=== PATIENT | male | born 1965 | race Caucasian/White ===

== ENCOUNTER 2016-09-01 09:45 | Emergency (ER) | payer OTHER ==
[2016-09-01 12:37] LABS: BASO % 0.4 % (0.0-1.0); EOS # 0.1 K/mm3 (0.0-0.50); EOS % 1.8 % (0.0-3.0); LARGE UNSTAINED CELL # 0.1 K/mm3 (0.0-0.4); LARGE UNSTAINED CELL % 0.9 % (0.0-4.0); MEAN CORPUSCULAR HEMOGLOBIN 30.1 pg (27.0-33.0); MEAN CORPUSCULAR HGB CONC 35.2 g/dl (32.0-36.5); MEAN CORPUSCULAR VOLUME 85.6 fl (80.0-96.0); MONO # 0.3 K/mm3 (0.0-0.8); MONO % 4.7 % (0.0-5.0); NEUTROPHILS % 77.1 % (36.0-66.0); PLATELET COUNT, AUTOMATED 193 k/mm3 (150-450); RED CELL DISTRIBUTION WIDTH 12.5 % (11.5-14.5); WHITE BLOOD COUNT 6.4 K/mm3 (4.0-10.0)
[2016-09-01 12:49] LABS: ALBUMIN 4.3 GM/DL (3.2-5.2); ALBUMIN/GLOBULIN RATIO 1.34 (1.00-1.93); ALKALINE PHOSPHATASE 87 U/L (45-117); ALT/SGPT 32 U/L (12-78); ANION GAP 6 MEQ/L (8-16); AST/SGOT 16 U/L (15-37); BILIRUBIN,TOTAL 0.5 MG/DL (0.2-1.0); BLOOD UREA NITROGEN 10 MG/DL (7-18); CARBON DIOXIDE LEVEL 30 MEQ/L (21-32); CHLORIDE LEVEL 106 MEQ/L (98-107); CREATININE FOR GFR 0.99 MG/DL (0.70-1.30); GLOMERULAR FILTRATION RATE > 60.0 (>60); GLUCOSE, FASTING 98 MG/DL (70-105); POTASSIUM SERUM 4.2 MEQ/L (3.5-5.1); SODIUM LEVEL 142 MEQ/L (136-145); TOTAL PROTEIN 7.5 GM/DL (6.4-8.2)
[2016-09-01 12:58] LABS: HEPATITIS B SURFACE ANTIBODY NEGATIVE (POSITIVE)
--- NOTE | 2016-09-01 13:40 | EDDOCDS ---
Physician Documentation [facility] Name: Kenny Crocker Age: 51 yrs Sex: Male : 1965 Arrival Date: 09/01/2016 Time: 09:45 Bed PR Private MD: NO PRIMARY PHYSICIAN, . Disposition: 09/01/16 13:28 Discharged to Home/Self Care. Impression: Contact with and (suspected) exposure to potentially hazardous body fluids - URINE, IN EYES/MOUTH. - Condition is Stable. - Discharge Instructions: Body Fluid Exposure Information. - Medication Reconciliation, Local Pharmacy Hours form. - Follow up: Emergency Department; When: As needed; Reason: Worsening of conditions. Follow up: Employee Health Office, .; When: Call to arrange an appointment; Reason: Wound/Symptom Recheck, Recheck today's complaints, Continuance of care, To establish care. - Problem is new. - Symptoms are unchanged. - Notes: PLEASE FOLLOW UP WITH EMPLOYEE HEALTH. THEY CAN OFFER YOU AND PROVIDE YOU WITH THE HEPATITIS B VACCINE, YOUR BLOOD WORK SHOWS YOU HAVE NOT HAD THIS IN THE PAST. RETURN TO THE ER WITH ANY WORSENING SYMPTOMS. Historical: - Allergies: no known allergies; - Home Meds: 1. none - PSHx: none; - Social history: Smoking status: Patient states was never smoker of tobacco. No barriers to communication noted, The patient speaks fluent Setswana, Speaks appropriately for age. - Family history: Not pertinent. - : The pt / caregiver states he / she is not on anticoagulants. Home medication list is obtained from the patient. - Exposure Risk Screening:: None identified. - Immunization history:: hep series unsure of . Vital Signs: 09/01 09:47 BP 129 / 73; Pulse 90; Resp 18; Temp 97.8(O); Pulse Ox 97% on R/A; Weight 64.41 kg / ct3 142 lbs (R); Height 5 ft. 6 in. (167.64 cm) (R); Pain 0/10; 13:35 BP 124 / 67; Pulse 66; Resp 18; Temp 97.3(TE); Pulse Ox 99% on R/A; Pain 0/10; ct3 09:47 Body Mass Index 22.92 (64.41 kg, 167.64 cm) ct3 MDM: 12:06 Consult Employee Health (M-F, 7:30a-4p) or Nursing Dinkey Motor Operator for source patient dt4 testing ordered. 12:06 Place PEP packet on chart ordered. dt4 12:07 CBC with Diff Ordered. EDMS 12:07 Complete Comphrensive Metabolic Ordered. EDMS 12:07 HIV EXPOSED(ONLY WITH PEP SET) Ordered. EDMS 12:07 Hepatitis B Surface Antibody Ordered. EDMS 12:07 Hepatitis B Surface Antigen Ordered. EDMS 12:07 Hepatitis C Antibody Ordered. EDMS 12:35 Financial registration complete. mm15 12:44 Consult [employer] (-, 7:30a-4p) or Nursing Dinkey Motor Operator for source patient ttb testing complete. 12:46 [facility] Payment Agreement was scanned into [employer] and attached to record. mm15 13:02 CBC with Diff Reviewed. dt4 13:02 Complete Comphrensive Metabolic Reviewed. dt4 13:02 Hepatitis B Surface Antibody Reviewed. dt4 Signatures: Dispatcher [employer] EDKY Trinity Turner RN RN hs1 Yoanna Beltre RN RN ttb Yanelis Mendoza mm15 Delicia Greene PA-C PA-C dt4 The chart was reviewed and I authenticate all verbal orders and agree with the evaluation and treatment provided.Attachments: 12:46 [facility] Payment Agreement mm15 MTDD
--- NOTE | 2016-09-01 13:40 | EDDOCDS ---
Nurse's Notes [facility] Name: Kenny Crocker Age: 51 yrs Sex: Male : 1965 Arrival Date: 09/01/2016 Time: 09:45 Bed PR1 / Private MD: NO PRIMARY PHYSICIAN, . Diagnosis: Contact with and (suspected) exposure to potentially hazardous body fluids-URINE, IN EYES/MOUTH Presentation: 09/01 09:59 Presenting complaint: Patient states: trying to unclog urinal and snake was stuck and hs1 splashed in face and mouth here for exposure. Patient states cleaned face with soap and water. Infectious control from [facility] told patient to report and come in for evaluation. Adult Sepsis Screening: The patient does not have new or worsening altered mentation. Patient's respiratory rate is less than 22. Systolic blood pressure is greater than 100. Patient has a qSOFA score of 0- Negative Sepsis Screen. Suicide/Homicide risk assessment- the patient denies having any suicidal and/or homicidal ideations and does not present with any other emotional, behavioral or mental health complaints. Status: Patient is not a commercial hvac service technician or dependent. Transition of care: patient was not received from another setting of care. 09:59 Acuity: SHARON Level 4 hs1 09:59 Method Of Arrival: Walkin/Carried/Asstd hs1 Triage Assessment: 10:01 General: Appears in no apparent distress, Behavior is appropriate for age, cooperative. hs1 Pain: Denies pain. Pt Declines HIV testing. Cardiovascular: No deficits noted. Respiratory: No deficits noted. Derm: Skin is pink, warm & dry. normal. Historical: - Allergies: no known allergies; - Home Meds: 1. none - PSHx: none; - Social history: Smoking status: Patient states was never smoker of tobacco. No barriers to communication noted, The patient speaks fluent Pashto, Speaks appropriately for age. - Family history: Not pertinent. - : The pt / caregiver states he / she is not on anticoagulants. Home medication list is obtained from the patient. - Exposure Risk Screening:: None identified. - Immunization history:: hep series unsure of . Screenin:38 Screening information is obtained from the patient. Fall risk: No risks identified. ttb Assistance ADL's: requires no assistance with activities of daily living. Abuse/DV Screen: The patient / caregiver reports he/she is: not in a situation that causes fear, pain or injury. Nutritional screening: No deficits noted. Advance Directives: Currently, there is. home support is adequate. Assessment: 12:45 General: employee health contacted, TRAVIS Ray states provider discretion for ttb treatment. Pt to go to office when completed in the ER.. 13:38 Reassessment: Patient appears in no apparent distress at this time. pt instructed to go ttb to employee health. . Neurological: Level of Consciousness is awake, alert. Respiratory: No deficits noted. Vital Signs: 09:47 BP 129 / 73; Pulse 90; Resp 18; Temp 97.8(O); Pulse Ox 97% on R/A; Weight 64.41 kg (R); ct3 Height 5 ft. 6 in. (167.64 cm) (R); Pain 0/10; 13:35 BP 124 / 67; Pulse 66; Resp 18; Temp 97.3(TE); Pulse Ox 99% on R/A; Pain 0/10; ct3 09:47 Body Mass Index 22.92 (64.41 kg, 167.64 cm) ct3 Vitals: 09:47 Log In Time: September 01, 2016 at 09:44. ct3 ED Course: 09:47 Patient visited by Vivian Wakefield PCA. ct3 09:47 NO PRIMARY PHYSICIAN, . is Private Physician. ct3 09:47 Patient moved to Waiting ct3 09:48 Patient moved to Pre RCE ct3 10:00 Triage Initiated hs1 10:56 Patient moved to Triage 3 ct3 11:36 Delicia Greene PA-C is PHCP. dt4 11:36 Albert Braden MD is Attending Physician. dt4 11:36 Patient visited by Delicia Greene PA-C. dt4 12:18 Patient moved to PR ct3 12:22 CBC with Diff Sent. ct3 12:22 Complete Comphrensive Metabolic Sent. ct3 12:22 Hepatitis B Surface Antibody Sent. ct3 12:22 HIV EXPOSED(ONLY WITH PEP SET) Sent. ct3 12:22 Hepatitis B Surface Antigen Sent. ct3 12:22 Hepatitis C Antibody Sent. ct3 12:44 Patient visited by Vivian Wakefield PCA. ct3 12:45 Patient visited by Yoanna Beltre RN. ttb 12:46 [facility] Payment Agreement was scanned into [employer] and attached to record. mm15 13:17 Patient visited by Vivian Wakefield PCA. ct3 13:27 Employee Health Office, . is Referral Physician. dt4 13:38 The patient / caregiver is instructed regarding the plan of care and ED course. Patient ttb has correct armband on for positive identification. 13:38 No IV's were initiated during this patient's visit. No procedures done that require ttb assistance. Labs drawn. (by ED staff). Order Results: Lab Order: CBC with Diff; SPEC'M 09/01/16 12:18 Test: WHITE BLOOD COUNT; Value: 6.4; Range: 4.0-10.0; Units: K/mm3; Status: F Test: RED BLOOD COUNT; Value: 5.19; Range: 4.30-6.10; Units: M/mm3; Status: F Test: HEMOGLOBIN; Value: 15.7; Range: 14.0-18.0; Units: g/dl; Status: F Test: HEMATOCRIT; Value: 44.4; Range: 42.0-52.0; Units: %; Status: F Test: MEAN CORPUSCULAR VOLUME; Value: 85.6; Range: 80.0-96.0; Units: fl; Status: F Test: MEAN CORPUSCULAR HEMOGLOBIN; Value: 30.1; Range: 27.0-33.0; Units: pg; Status: F Test: MEAN CORPUSCULAR HGB CONC; Value: 35.2; Range: 32.0-36.5; Units: g/dl; Status: F Test: RED CELL DISTRIBUTION WIDTH; Value: 12.5; Range: 11.5-14.5; Units: %; Status: F Test: PLATELET COUNT, AUTOMATED; Value: 193; Range: 150-450; Units: k/mm3; Status: F Test: NEUTROPHILS %; Value: 77.1; Range: 36.0-66.0; Abnormal: Above high normal; Units: %; Status: F Test: LYMPH %; Value: 15.0; Range: 24.0-44.0; Abnormal: Below low normal; Units: %; Status: F Test: MONO %; Value: 4.7; Range: 0.0-5.0; Units: %; Status: F Test: EOS %; Value: 1.8; Range: 0.0-3.0; Units: %; Status: F Test: BASO %; Value: 0.4; Range: 0.0-1.0; Units: %; Status: F Test: LARGE UNSTAINED CELL %; Value: 0.9; Range: 0.0-4.0; Units: %; Status: F Test: NEUTROPHILS #; Value: 5.0; Range: 1.8-7.7; Units: K/mm3; Status: F Test: LYMPH #; Value: 1.0; Range: 1.5-4.5; Abnormal: Below low normal; Units: K/mm3; Status: F Test: MONO #; Value: 0.3; Range: 0.0-0.8; Units: K/mm3; Status: F Test: EOS #; Value: 0.1; Range: 0.0-0.50; Units: K/mm3; Status: F Test: BASO #; Value: 0.0; Range: 0.0-0.2; Units: K/mm3; Status: F Test: LARGE UNSTAINED CELL #; Value: 0.1; Range: 0.0-0.4; Units: K/mm3; Status: F Lab Order: Complete Comphrensive Metabolic; SPEC'M 09/01/16 12:18 Test: GLUCOSE, FASTING; Value: 98; Range: 70-105; Units: MG/DL; Status: F Test: BLOOD UREA NITROGEN; Value: 10; Range: 7-18; Units: MG/DL; Status: F Test: CREATININE FOR GFR; Value: 0.99; Range: 0.70-1.30; Units: MG/DL; Status: F Test: GLOMERULAR FILTRATION RATE; Value: > 60.0; Range: >60; Status: F Test: SODIUM LEVEL; Value: 142; Range: 136-145; Units: MEQ/L; Status: F Test: POTASSIUM SERUM; Value: 4.2; Range: 3.5-5.1; Units: MEQ/L; Status: F Test: CHLORIDE LEVEL; Value: 106; Range: 98-107; Units: MEQ/L; Status: F Test: CARBON DIOXIDE LEVEL; Value: 30; Range: 21-32; Units: MEQ/L; Status: F Test: ANION GAP; Value: 6; Range: 8-16; Abnormal: Below low normal; Units: MEQ/L; Status: F Test: CALCIUM LEVEL; Value: 9.0; Range: 8.5-10.1; Units: MG/DL; Status: F Test: AST/SGOT; Value: 16; Range: 15-37; Units: U/L; Status: F Test: ALT/SGPT; Value: 32; Range: 12-78; Units: U/L; Status: F Test: ALKALINE PHOSPHATASE; Value: 87; Range: 45-117; Units: U/L; Status: F Test: BILIRUBIN,TOTAL; Value: 0.5; Range: 0.2-1.0; Units: MG/DL; Status: F Test: TOTAL PROTEIN; Value: 7.5; Range: 6.4-8.2; Units: GM/DL; Status: F Test: ALBUMIN; Value: 4.3; Range: 3.2-5.2; Units: GM/DL; Status: F Test: ALBUMIN/GLOBULIN RATIO; Value: 1.34; Range: 1.00-1.93; Status: F Test Note: ; Units are mL/min/1.73 m2 Chronic Kidney Disease Staging per NKF: Stage I & II GFR >=60 Normal to Mildly Decreased Stage III GFR 30-59 Moderately Decreased Stage IV GFR 15-29 Severely Decreased Stage V GFR <15 Very Little GFR Left ESRD GFR <15 on FIELD GEOLOGIST Lab Order: HIV EXPOSED(ONLY WITH PEP SET); [facility]09/01/16 12:18 Test: HIVEXPOSED0; Range: NEGATIVE; Status: I Test: HIV EXPOSED PT 1; Range: NEGATIVE; Status: I Lab Order: Hepatitis B Surface Antibody; SPEC09/01/16 12:18 Test: HEPATITIS B SURFACE ANTIBODY; Value: NEGATIVE; Range: POSITIVE; Status: F Lab Order: Hepatitis B Surface Antigen; SPEC 09/01/16 12:18 Test: HEPATITIS B SURFACE ANTIGEN; Value: NEGATIVE; Range: NEGATIVE; Status: F Lab Order: Hepatitis C Antibody; [facility]09/01/16 12:18 Test: HEPATITIS C VIRUS MYNOR INDEX; Value: 0.0; Range: <0.8; Units: INDEX; Status: F Test Note: ; Negative Not infected with HCV, unless recent infection is suspected or other evidence exists to indicate HCV infection. Outcome: 13:28 Discharge ordered by Provider. dt4 13:38 Discharge Assessment: Patient awake, alert and oriented x 3. No cognitive and/or ttb functional deficits noted. Patient verbalized understanding of disposition instructions. Patient awake and alert. patient administered narcotics - no. The following High Risk Discharge criteria are identified: None. Discharged to home ambulatory. Condition: good Condition: stable Condition: improved. Discharge instructions given to patient, Instructed on discharge instructions, follow up and referral plans. medication usage, Demonstrated understanding of instructions, Pt was receptive of discharge instructions/ teaching. No special radiology studies were completed. Property :Personal belongings accompany Pt. 13:40 Patient left the ED. ttb Signatures: Trinity Turner RN RN hs1 Vivian Wakefield, FLOUR MIXER HELPER FLOUR MIXER HELPER ct3 Yoanna Beltre RN RN ttb Yanelis Mendoza mm15 Delicia Greene, PA-C PA-C dt4 MTDD
[2016-09-01 14:06] LABS: CONTROL LINE INT CTR LINE PRESENT
--- NOTE | 2016-09-03 14:41 | EDDOCDS ---
Nurse's Notes [facility] Name: Kenny Crocker Age: 51 yrs Sex: Male : 1965 Arrival Date: 09/01/2016 Time: 09:45 Bed PR1 / Private MD: NO PRIMARY PHYSICIAN, . Diagnosis: Contact with and (suspected) exposure to potentially hazardous body fluids-URINE, IN EYES/MOUTH Presentation: 09/01 09:59 Presenting complaint: Patient states: trying to unclog urinal and snake was stuck and hs1 splashed in face and mouth here for exposure. Patient states cleaned face with soap and water. Infectious control from [facility] told patient to report and come in for evaluation. Adult Sepsis Screening: The patient does not have new or worsening altered mentation. Patient's respiratory rate is less than 22. Systolic blood pressure is greater than 100. Patient has a qSOFA score of 0- Negative Sepsis Screen. Suicide/Homicide risk assessment- the patient denies having any suicidal and/or homicidal ideations and does not present with any other emotional, behavioral or mental health complaints. Status: Patient is not a director of food and beverage services or dependent. Transition of care: patient was not received from another setting of care. 09:59 Acuity: SHARON Level 4 hs1 09:59 Method Of Arrival: Walkin/Carried/Asstd hs1 Triage Assessment: 10:01 General: Appears in no apparent distress, Behavior is appropriate for age, cooperative. hs1 Pain: Denies pain. Pt Declines HIV testing. Cardiovascular: No deficits noted. Respiratory: No deficits noted. Derm: Skin is pink, warm & dry. normal. Historical: - Allergies: no known allergies; - Home Meds: 1. none - PSHx: none; - Social history: Smoking status: Patient states was never smoker of tobacco. No barriers to communication noted, The patient speaks fluent Kinyarwanda, Speaks appropriately for age. - Family history: Not pertinent. - : The pt / caregiver states he / she is not on anticoagulants. Home medication list is obtained from the patient. - Exposure Risk Screening:: None identified. - Immunization history:: hep series unsure of . Screenin:38 Screening information is obtained from the patient. Fall risk: No risks identified. ttb Assistance ADL's: requires no assistance with activities of daily living. Abuse/DV Screen: The patient / caregiver reports he/she is: not in a situation that causes fear, pain or injury. Nutritional screening: No deficits noted. Advance Directives: Currently, there is. home support is adequate. Assessment: 12:45 General: employee health contacted, TRAVIS Ray states provider discretion for ttb treatment. Pt to go to office when completed in the ER.. 13:38 Reassessment: Patient appears in no apparent distress at this time. pt instructed to go ttb to employee health. . Neurological: Level of Consciousness is awake, alert. Respiratory: No deficits noted. Vital Signs: 09:47 BP 129 / 73; Pulse 90; Resp 18; Temp 97.8(O); Pulse Ox 97% on R/A; Weight 64.41 kg (R); ct3 Height 5 ft. 6 in. (167.64 cm) (R); Pain 0/10; 13:35 BP 124 / 67; Pulse 66; Resp 18; Temp 97.3(TE); Pulse Ox 99% on R/A; Pain 0/10; ct3 09:47 Body Mass Index 22.92 (64.41 kg, 167.64 cm) ct3 Vitals: 09:47 Log In Time: September 01, 2016 at 09:44. ct3 ED Course: 09:47 Patient visited by Vivian Wakefield PCA. ct3 09:47 NO PRIMARY PHYSICIAN, . is Private Physician. ct3 09:47 Patient moved to Waiting ct3 09:48 Patient moved to Pre RCE ct3 10:00 Triage Initiated hs1 10:56 Patient moved to Triage 3 ct3 11:36 Delicia Greene PA-C is PHCP. dt4 11:36 Albert Braden MD is Attending Physician. dt4 11:36 Patient visited by Delicia Greene PA-C. dt4 12:18 Patient moved to PR ct3 12:22 CBC with Diff Sent. ct3 12:22 Complete Comphrensive Metabolic Sent. ct3 12:22 Hepatitis B Surface Antibody Sent. ct3 12:22 HIV EXPOSED(ONLY WITH PEP SET) Sent. ct3 12:22 Hepatitis B Surface Antigen Sent. ct3 12:22 Hepatitis C Antibody Sent. ct3 12:44 Patient visited by Vivian Wakefield PCA. ct3 12:45 Patient visited by Yoanna Beltre RN. ttb 12:46 [facility] Payment Agreement was scanned into [employer] and attached to record. mm15 13:17 Patient visited by Vivian Wakefield PCA. ct3 13:27 Employee Health Office, . is Referral Physician. dt4 13:38 The patient / caregiver is instructed regarding the plan of care and ED course. Patient ttb has correct armband on for positive identification. 13:38 No IV's were initiated during this patient's visit. No procedures done that require ttb assistance. Labs drawn. (by ED staff). 09/02 11:00 T-Sheet-- Draft Copy was scanned into [employer] and attached to record. gb 11:00 Other: PEP was scanned into [employer] and attached to record. gb Order Results: Lab Order: CBC with Diff; SPEC'M 09/01/16 12:18 Test: WHITE BLOOD COUNT; Value: 6.4; Range: 4.0-10.0; Units: K/mm3; Status: F Test: RED BLOOD COUNT; Value: 5.19; Range: 4.30-6.10; Units: M/mm3; Status: F Test: HEMOGLOBIN; Value: 15.7; Range: 14.0-18.0; Units: g/dl; Status: F Test: HEMATOCRIT; Value: 44.4; Range: 42.0-52.0; Units: %; Status: F Test: MEAN CORPUSCULAR VOLUME; Value: 85.6; Range: 80.0-96.0; Units: fl; Status: F Test: MEAN CORPUSCULAR HEMOGLOBIN; Value: 30.1; Range: 27.0-33.0; Units: pg; Status: F Test: MEAN CORPUSCULAR HGB CONC; Value: 35.2; Range: 32.0-36.5; Units: g/dl; Status: F Test: RED CELL DISTRIBUTION WIDTH; Value: 12.5; Range: 11.5-14.5; Units: %; Status: F Test: PLATELET COUNT, AUTOMATED; Value: 193; Range: 150-450; Units: k/mm3; Status: F Test: NEUTROPHILS %; Value: 77.1; Range: 36.0-66.0; Abnormal: Above high normal; Units: %; Status: F Test: LYMPH %; Value: 15.0; Range: 24.0-44.0; Abnormal: Below low normal; Units: %; Status: F Test: MONO %; Value: 4.7; Range: 0.0-5.0; Units: %; Status: F Test: EOS %; Value: 1.8; Range: 0.0-3.0; Units: %; Status: F Test: BASO %; Value: 0.4; Range: 0.0-1.0; Units: %; Status: F Test: LARGE UNSTAINED CELL %; Value: 0.9; Range: 0.0-4.0; Units: %; Status: F Test: NEUTROPHILS #; Value: 5.0; Range: 1.8-7.7; Units: K/mm3; Status: F Test: LYMPH #; Value: 1.0; Range: 1.5-4.5; Abnormal: Below low normal; Units: K/mm3; Status: F Test: MONO #; Value: 0.3; Range: 0.0-0.8; Units: K/mm3; Status: F Test: EOS #; Value: 0.1; Range: 0.0-0.50; Units: K/mm3; Status: F Test: BASO #; Value: 0.0; Range: 0.0-0.2; Units: K/mm3; Status: F Test: LARGE UNSTAINED CELL #; Value: 0.1; Range: 0.0-0.4; Units: K/mm3; Status: F Lab Order: Complete Comphrensive Metabolic; SPEC'M 09/01/16 12:18 Test: GLUCOSE, FASTING; Value: 98; Range: 70-105; Units: MG/DL; Status: F Test: BLOOD UREA NITROGEN; Value: 10; Range: 7-18; Units: MG/DL; Status: F Test: CREATININE FOR GFR; Value: 0.99; Range: 0.70-1.30; Units: MG/DL; Status: F Test: GLOMERULAR FILTRATION RATE; Value: > 60.0; Range: >60; Status: F Test: SODIUM LEVEL; Value: 142; Range: 136-145; Units: MEQ/L; Status: F Test: POTASSIUM SERUM; Value: 4.2; Range: 3.5-5.1; Units: MEQ/L; Status: F Test: CHLORIDE LEVEL; Value: 106; Range: 98-107; Units: MEQ/L; Status: F Test: CARBON DIOXIDE LEVEL; Value: 30; Range: 21-32; Units: MEQ/L; Status: F Test: ANION GAP; Value: 6; Range: 8-16; Abnormal: Below low normal; Units: MEQ/L; Status: F Test: CALCIUM LEVEL; Value: 9.0; Range: 8.5-10.1; Units: MG/DL; Status: F Test: AST/SGOT; Value: 16; Range: 15-37; Units: U/L; Status: F Test: ALT/SGPT; Value: 32; Range: 12-78; Units: U/L; Status: F Test: ALKALINE PHOSPHATASE; Value: 87; Range: 45-117; Units: U/L; Status: F Test: BILIRUBIN,TOTAL; Value: 0.5; Range: 0.2-1.0; Units: MG/DL; Status: F Test: TOTAL PROTEIN; Value: 7.5; Range: 6.4-8.2; Units: GM/DL; Status: F Test: ALBUMIN; Value: 4.3; Range: 3.2-5.2; Units: GM/DL; Status: F Test: ALBUMIN/GLOBULIN RATIO; Value: 1.34; Range: 1.00-1.93; Status: F Test Note: ; Units are mL/min/1.73 m2 Chronic Kidney Disease Staging per NKF: Stage I & II GFR >=60 Normal to Mildly Decreased Stage III GFR 30-59 Moderately Decreased Stage IV GFR 15-29 Severely Decreased Stage V GFR <15 Very Little GFR Left ESRD GFR <15 on TEACHER ADULT EDUCATION Lab Order: HIV EXPOSED(ONLY WITH PEP SET); SPEC'M 09/01/16 12:18 Test: HIVEXPOSED0; Value: NEGATIVE; Range: NEGATIVE; Status: F Test: HIV EXPOSED PT 1; Value: NEGATIVE; Range: NEGATIVE; Status: F Test Note: ; This test was performed utilizing a immunochromatographic sandwich principle technique. Sensitivity of the assay is 100%. Specificity of the assay is 99.7%. Lab Order: Hepatitis B Surface Antibody; SPEC'M 09/01/16 12:18 Test: HEPATITIS B SURFACE ANTIBODY; Value: NEGATIVE; Range: POSITIVE; Status: F Lab Order: Hepatitis B Surface Antigen; SPEC'M 09/01/16 12:18 Test: HEPATITIS B SURFACE ANTIGEN; Value: NEGATIVE; Range: NEGATIVE; Status: F Lab Order: Hepatitis C Antibody; SPEC'M 09/01/16 12:18 Test: HEPATITIS C VIRUS MYNOR INDEX; Value: 0.0; Range: <0.8; Units: INDEX; Status: F Test Note: ; Negative Not infected with HCV, unless recent infection is suspected or other evidence exists to indicate HCV infection. Outcome: 09/01 13:28 Discharge ordered by Provider. dt4 13:38 Discharge Assessment: Patient awake, alert and oriented x 3. No cognitive and/or ttb functional deficits noted. Patient verbalized understanding of disposition instructions. Patient awake and alert. patient administered narcotics - no. The following High Risk Discharge criteria are identified: None. Discharged to home ambulatory. Condition: good Condition: stable Condition: improved. Discharge instructions given to patient, Instructed on discharge instructions, follow up and referral plans. medication usage, Demonstrated understanding of instructions, Pt was receptive of discharge instructions/ teaching. No special radiology studies were completed. Property :Personal belongings accompany Pt. 13:40 Patient left the ED. ttb Signatures: Sandhya Solorzano, Reg Reg Trinity Cunningham, RN RN hs1 Vivian Wakefield, SENIOR LEAD PROJECT MANAGER SENIOR LEAD PROJECT MANAGER ct3 Yoanna Beltre RN RN ttb Yanelis Mendoza mm15 Delicia Greene PA-C [place] dt4 Chart Complete MTDD
--- NOTE | 2016-09-03 14:41 | EDDOCDS ---
Physician Documentation [facility] Name: Kenny Crocker Age: 51 yrs Sex: Male : 1965 Arrival Date: 09/01/2016 Time: 09:45 Bed PR Private MD: NO PRIMARY PHYSICIAN, . Disposition: 09/01/16 13:28 Discharged to Home/Self Care. Impression: Contact with and (suspected) exposure to potentially hazardous body fluids - URINE, IN EYES/MOUTH. - Condition is Stable. - Discharge Instructions: Body Fluid Exposure Information. - Medication Reconciliation, Local Pharmacy Hours form. - Follow up: Emergency Department; When: As needed; Reason: Worsening of conditions. Follow up: Employee Health Office, .; When: Call to arrange an appointment; Reason: Wound/Symptom Recheck, Recheck today's complaints, Continuance of care, To establish care. - Problem is new. - Symptoms are unchanged. - Notes: PLEASE FOLLOW UP WITH EMPLOYEE HEALTH. THEY CAN OFFER YOU AND PROVIDE YOU WITH THE HEPATITIS B VACCINE, YOUR BLOOD WORK SHOWS YOU HAVE NOT HAD THIS IN THE PAST. RETURN TO THE ER WITH ANY WORSENING SYMPTOMS. Historical: - Allergies: no known allergies; - Home Meds: 1. none - PSHx: none; - Social history: Smoking status: Patient states was never smoker of tobacco. No barriers to communication noted, The patient speaks fluent Slovenian, Speaks appropriately for age. - Family history: Not pertinent. - : The pt / caregiver states he / she is not on anticoagulants. Home medication list is obtained from the patient. - Exposure Risk Screening:: None identified. - Immunization history:: hep series unsure of . Vital Signs: 09/01 09:47 BP 129 / 73; Pulse 90; Resp 18; Temp 97.8(O); Pulse Ox 97% on R/A; Weight 64.41 kg / ct3 142 lbs (R); Height 5 ft. 6 in. (167.64 cm) (R); Pain 0/10; 13:35 BP 124 / 67; Pulse 66; Resp 18; Temp 97.3(TE); Pulse Ox 99% on R/A; Pain 0/10; ct3 09:47 Body Mass Index 22.92 (64.41 kg, 167.64 cm) ct3 MDM: 12:06 Consult Employee Health (M-F, 7:30a-4p) or Nursing Blood Bank Custodian for source patient dt4 testing ordered. 12:06 Place PEP packet on chart ordered. dt4 12:07 CBC with Diff Ordered. EDMS 12:07 Complete Comphrensive Metabolic Ordered. EDMS 12:07 HIV EXPOSED(ONLY WITH PEP SET) Ordered. EDMS 12:07 Hepatitis B Surface Antibody Ordered. EDMS 12:07 Hepatitis B Surface Antigen Ordered. EDMS 12:07 Hepatitis C Antibody Ordered. EDMS 12:35 Financial registration complete. mm15 12:44 Consult [employer] (-F, 7:30a-4p) or Nursing Blood Bank Custodian for source patient ttb testing complete. 12:46 [facility] [place] [facility] Payment Agreement was scanned into [employer] and attached to record. mm15 13:02 CBC with Diff Reviewed. dt4 13:02 Complete Comphrensive Metabolic Reviewed. dt4 13:02 Hepatitis B Surface Antibody Reviewed. dt4 09/02 11:00 T-Sheet-- Draft Copy was scanned into [employer] and attached to record. gb 11:00 Other: PEP was scanned into [employer] and attached to record. gb Signatures: Dispatcher [employer] EDMS Sandhya Solorzano, Reg Reg gb Trinity Turner, TRAVIS RN hs1 Yoanna Beltre RN RN ttb Yanelis Mendoza mm15 Delciia Greene PA-C PA-C dt4 The chart was reviewed and I authenticate all verbal orders and agree with the evaluation and treatment provided.Attachments: 09/01 12:46 [facility] Payment Agreement mm15 09/02 11:00 T-Sheet-- Draft Copy gb Chart Complete MTDD
--- NOTE | 2016-09-03 14:41 | EDDOCDS ---
Physician Documentation [facility] Name: Kenny Crocker Age: 51 yrs Sex: Male : 1965 Arrival Date: 09/01/2016 Time: 09:45 Bed PR Private MD: NO PRIMARY PHYSICIAN, . Disposition: 09/01/16 13:28 Discharged to Home/Self Care. Impression: Contact with and (suspected) exposure to potentially hazardous body fluids - URINE, IN EYES/MOUTH. - Condition is Stable. - Discharge Instructions: Body Fluid Exposure Information. - Medication Reconciliation, Local Pharmacy Hours form. - Follow up: Emergency Department; When: As needed; Reason: Worsening of conditions. Follow up: Employee Health Office, .; When: Call to arrange an appointment; Reason: Wound/Symptom Recheck, Recheck today's complaints, Continuance of care, To establish care. - Problem is new. - Symptoms are unchanged. - Notes: PLEASE FOLLOW UP WITH EMPLOYEE HEALTH. THEY CAN OFFER YOU AND PROVIDE YOU WITH THE HEPATITIS B VACCINE, YOUR BLOOD WORK SHOWS YOU HAVE NOT HAD THIS IN THE PAST. RETURN TO THE ER WITH ANY WORSENING SYMPTOMS. Historical: - Allergies: no known allergies; - Home Meds: 1. none - PSHx: none; - Social history: Smoking status: Patient states was never smoker of tobacco. No barriers to communication noted, The patient speaks fluent Chinese, Speaks appropriately for age. - Family history: Not pertinent. - : The pt / caregiver states he / she is not on anticoagulants. Home medication list is obtained from the patient. - Exposure Risk Screening:: None identified. - Immunization history:: hep series unsure of . Vital Signs: 09/01 09:47 BP 129 / 73; Pulse 90; Resp 18; Temp 97.8(O); Pulse Ox 97% on R/A; Weight 64.41 kg / ct3 142 lbs (R); Height 5 ft. 6 in. (167.64 cm) (R); Pain 0/10; 13:35 BP 124 / 67; Pulse 66; Resp 18; Temp 97.3(TE); Pulse Ox 99% on R/A; Pain 0/10; ct3 09:47 Body Mass Index 22.92 (64.41 kg, 167.64 cm) ct3 MDM: 12:06 Consult Employee Health (M-F, 7:30a-4p) or Nursing Bulldozer Mechanic for source patient dt4 testing ordered. 12:06 Place PEP packet on chart ordered. dt4 12:07 CBC with Diff Ordered. EDMS 12:07 Complete Comphrensive Metabolic Ordered. EDMS 12:07 HIV EXPOSED(ONLY WITH PEP SET) Ordered. EDMS 12:07 Hepatitis B Surface Antibody Ordered. EDMS 12:07 Hepatitis B Surface Antigen Ordered. EDMS 12:07 Hepatitis C Antibody Ordered. EDMS 12:35 Financial registration complete. mm15 12:44 Consult [employer] (-F, 7:30a-4p) or Nursing Bulldozer Mechanic for source patient ttb testing complete. 12:46 [facility] Payment Agreement was scanned into [employer] and attached to record. mm15 13:02 CBC with Diff Reviewed. dt4 13:02 Complete Comphrensive Metabolic Reviewed. dt4 13:02 Hepatitis B Surface Antibody Reviewed. dt4 09/02 11:00 T-Sheet-- Draft Copy was scanned into [employer] and attached to record. gb 11:00 Other: PEP was scanned into [employer] and attached to record. gb Signatures: Dispatcher [employer] EDMS Sandhya Solorzano, Reg Reg gb Trinity Turner, TRAVIS RN hs1 Yoanna Beltre RN RN ttb Yanelis Mendoza mm15 Delicia Greene PA-C PA-C dt4 The chart was reviewed and I authenticate all verbal orders and agree with the evaluation and treatment provided.Attachments: 09/01 12:46 [facility] Payment Agreement mm15 09/02 11:00 T-Sheet-- Draft Copy gb Chart Complete MTDD
== END 2016-09-01 13:40 | disposition home or self-care (01) ==
LOC: M ED 09:45
DX: Z77.21 Contact with and (suspected) exposure to potentially hazardous body fluids (principal)

== ENCOUNTER 2020-01-11 09:53 | Emergency (ER) | payer BC, OTHER ==
[~2020-01-11] VITALS: Ht 167.6 cm; Wt 83.2 kg
[2020-01-11 10:56] LABS: BASO % 0.3 % (0.0-1.0); HEMATOCRIT 46.1 % (42.0-52.0); HEMOGLOBIN 16.4 g/dl (13.5-17.5); LYMPH # 0.5 10^3/uL (1.5-5.0); LYMPH % 3.1 % (24.0-44.0); MEAN CORPUSCULAR HEMOGLOBIN 30.4 pg (27.0-33.0); MEAN CORPUSCULAR HGB CONC 35.6 g/dl (32.0-36.5); MEAN CORPUSCULAR VOLUME 85.4 fl (80.0-96.0); MONO # 0.7 10^3/uL (0.0-0.8); MONO % 4.3 % (0.0-5.0); NEUTROPHILS # 14.7 10^3/uL (1.5-8.5); NEUTROPHILS % 91.9 % (36.0-66.0); PLATELET COUNT, AUTOMATED 248 10^3/uL (150-450)
[2020-01-11 11:20] LABS: ALBUMIN 4.4 GM/DL (3.2-5.2); BILIRUBIN,DIRECT 0.2 MG/DL (0.0-0.2); BILIRUBIN,TOTAL 0.7 MG/DL (0.2-1.0); CALCIUM LEVEL 9.1 MG/DL (8.5-10.1); CREATININE FOR GFR 1.41 MG/DL (0.70-1.30); GLOMERULAR FILTRATION RATE 56.2 (>56); POTASSIUM SERUM 4.1 MEQ/L (3.5-5.1); TOTAL PROTEIN 8.4 GM/DL (6.4-8.2)
[2020-01-11] MEDS ORDERED: ONDANSETRON 4MG/2ML VIAL IV ONE (12:00)
[2020-01-11] MEDS ORDERED: NS 1,000 ML IV ONE (12:00)
[2020-01-11] MEDS ORDERED: MORPHINE 4 MG/ML 1ML VIAL/SYRINGE (J2270) IV ONE (12:00)
--- NOTE | 2020-01-11 12:50 | REP ---
REASON FOR EXAM: Bilateral flank pain . There are no priors for comparison. There is an incidental calcified granuloma in the left lung base. The lung bases are otherwise clear. Limited evaluation of the solid intra-abdominal organs show no gross abnormalities. There is no nephroureteral lithiasis, hydronephrosis or hydroureter. There are no urinary bladder calcifications. There are pelvic phleboliths. There is cholelithiasis. In the interpolar region of the right kidney, there is a faintly visible round 1.8 cm size low density lesion which has near water density Hounsfield unit readings. Limited evaluation of the abdominal aorta and para-aortic regions show no gross abnormality. Limited evaluation of the intra-abdominal and intrapelvic bowel loops and their mesenteries show no gross abnormalities. There is no free fluid or free air in the abdomen or pelvis. There is no evidence of an intra-abdominal or intrapelvic mass or adenopathy. Bone window technique throughout the examination shows the osseous structures to be within normal limits for the patient's age. IMPRESSION: 1. There is cholelithiasis. 2. There is evidence of a slightly hyperdense right renal cyst. Consider ultrasonography for further evaluation. Electronically Signed by Car Yip DO 01/11/2020 01:46 P
[2020-01-11] MEDS ORDERED: LR 1,000 ML IV SCH (14:00)
--- NOTE | 2020-01-11 14:20 | REP ---
COMPLETE ABDOMINAL SONOGRAPHY: HISTORY: Right upper quadrant pain. Positive Arrieta's sign. Comparison is made with today's CT study. SONOGRAPHIC FINDINGS: Scanning through right upper quadrant of the abdomen demonstrates multiple shadowing gallstones largely filling the gallbladder lumen. There is minimal gallbladder wall thickening. Common bile duct is normal measuring 0.6 cm in greatest diameter. No pancreatic abnormality is noted. The pancreas is partially obscured by bowel gas. No focal liver lesion is seen. The spleen is normal in size measuring 10.1 cm in greatest diameter. No focal splenic lesion is seen. Renal cortical echogenicity pattern is normal and contours smooth bilaterally. Right renal dimensions are 10.3 x 7.3 x 6.4 cm. The left kidney measures 10.9 x 5.3 x 5.9 cm. There is a 1.5 cm cyst in the mid pole region of the right kidney. This is seen on CT. Normal caliber aorta is seen. 2.3 cm. Scanning at the level of the urinary bladder shows smooth bladder shore. Pre-void bladder volume is calculated at 109 mL. Emptying ureteral jets are confirmed bilaterally. Prostate dimensions are 4.1 x 3.9 x 3.5 cm calculated volume 29 mL. IMPRESSION: Cholelithiasis and mild gallbladder wall thickening. Small cyst right kidney. Otherwise negative. Electronically Signed by Rocky Barrios MD 01/11/2020 05:42 P
[2020-01-11 15:39] VITALS: BP 144/82
--- NOTE | 2020-01-11 21:27 | ER ---
DATE OF CONSULTATION: 01/11/2020 CONSULTATION FOR THE EMERGENCY DEPARTMENT REASON FOR CONSULTATION: Cholelithiasis with upper abdominal pain. HISTORY OF THE PRESENT ILLNESS: The patient is a 54-year-old man who presented to the emergency department at approximately 10 o'clock in the morning on 01/11/2020 complaining of upper abdominal pain. He reports that since about 2015, he has had intermittent bouts of pain in the upper abdomen radiating across his upper abdomen. These have generally occurred postprandial and last for an hour or two and then resolve. They have sometimes seemed to be more common after drinking coffee. He has had no associated nausea or vomiting. He reports that on the evening of 01/10/2020 at approximately 2130 hours, he noted the onset of discomfort. This worsened for some time, and he was unable to return to sleep. The pain persisted throughout the night. He found that standing in a hot shower made it feel better. He noticed no nausea or vomiting. He has had no fevers or chills. He denies any history of jaundice, dark urine or light-colored stools. He presented to the emergency department still with some pain present, though it had diminished perhaps somewhat by the time he presented. He was found to have still some mild tenderness in the right subcostal area. He had labs that showed a mild elevation of his white blood cell count, and a CT scan confirmed multiple gallstones. An ultrasound showed some mild thickening of the gallbladder wall. I was asked to evaluate the patient regarding possible acute cholecystitis. ALLERGIES: The patient denies any known drug allergies. MEDICATIONS: None. MEDICAL HISTORY: Completely negative. SURGICAL HISTORY: Negative. REVIEW OF SYSTEMS: Reveals no history of chest pain or palpitations. He denies any shortness of breath, cough or wheezing. He has no dysuria or hematuria or history of renal stones. There are no bone or joint issues. He has no gastrointestinal (GI) complaints other than his episodic upper abdominal pains. He has never been tested for these previously. There is no history of deep vein thrombosis (DVT) or pulmonary embolus. He denies any neurologic problems. FAMILY HISTORY: He reports that his mother and two sisters have all had their gallbladders out for gallstones. SOCIAL HISTORY: The patient is and employed at the [employer] in [employer]. He is a nonsmoker. The patient's most recent vital signs show a temperature of 97.2, pulse of 77, respirations of 20, and his blood pressure is elevated at 187/104. He is awake and alert, and does not appear to be in any significant discomfort. He is able to sit up on the stretcher and actually get out of the stretcher and move across the room, place his cell phone on the nearby chair without any apparent discomfort. Skin: Warm and dry. Sclerae are anicteric. Mucous membranes are moist. The neck is supple without mass or bruit. Heart exam shows a regular rate and rhythm at a rate of about 70. The lungs are clear to auscultation bilaterally. Abdomen is perhaps borderline obese. He has bowel sounds present. There is no tympany to percussion. There is no tenderness to percussion throughout the abdomen. The abdomen is soft throughout. He has some minimal direct tenderness in the medial right subcostal area with fairly deep palpation. The remainder of the abdomen is nontender. No masses appreciated. Extremities are without edema. LABORATORY STUDIES: Show white count of 16,000, hemoglobin 16, hematocrit 46 and platelet count of 248,000. Differential count shows 92% neutrophils, 3% lymphocytes. Chemistry profile shows a sodium of 141, potassium 4.1, chloride 108, CO2 of 23, BUN of 19, creatinine 1.4 and a glucose of 156. His total bilirubin is 0.7 with a direct of 0.2. AST, ALT and alkaline phosphatase are 11, 31, and 83 respectively. Lipase is normal at 55. A urinalysis shows a specific gravity 1.033 with 2+ protein, 1+ blood but the microscopic shows 3 white cells and 5 red cells per high-power field with no bacteria. His CT scan, which was done first, shows multiple stones within the gallbladder. There was a suggestion of a possible cyst in the right kidney. There was no evidence of gallbladder wall thickening by CT and no acute inflammation evident elsewhere. A followup abdominal ultrasound was done, which confirmed cholelithiasis. There was some minimal gallbladder wall thickening. Common bile duct was normal. The right kidney was found to have a 1.5 cm cyst. IMPRESSION: The patient is a 54-year-old man with a negative past medical history and no prior surgery. He does report that for about 4 years he has had intermittent episodes of upper abdominal discomfort, which sound typical for biliary colic. Last night he developed pain at about 9:30 in the evening, and it has persisted since. He did receive one dose of morphine at about 12:45 this afternoon, so about 2 hours before I saw him. He seems right now to be quite comfortable at rest. He has some minimal tenderness in the right subcostal area, but he reports this is significantly less than it has been. Initially from speaking with the physician's assistant toddler teacher about this patient, it was my concern that this represented acute cholecystitis based on the history of an elevated white count with a prolonged episode of pain and some gallbladder wall thickening. However, currently it seems that his pain is largely resolved with some minimal tenderness. His CT scan shows multiple stones, but the thickening of the gallbladder wall appears minimal at most. PLAN: I discussed with the patient that I think that his clinical picture is most consistent with a prolonged episode of colic, which seems to be resolving. If he had clear-cut acute cholecystitis, I would recommend admitting him to the hospital as a surgical day care patient for a cholecystectomy today. Since he seems to be improving, I discussed with him that discharge home would be reasonable. If his pain recurs again today or tomorrow, or in the very near future, and again seems to be prolonged, then he should return to the emergency department and I would recommend we proceed with a cholecystectomy. If the pain continues to fade, then he can remain at home. I have recommended that he follow up with me in the office in the next week to 10 days to consider scheduling an elective laparoscopic cholecystectomy. The patient had an opportunity to ask questions. He appears comfortable with this plan for discharge and follow up on an outpatient basis. He will, therefore, be sent home, and I will see him back in the office. CORNELIA
--- NOTE | 2020-01-14 08:12 | ED PDOC ---
Post-Departure Follow-Up dr bahena faxed formal report of ct abd/p for fu Kymberly Dorado MD Jan 14, 2020 08:12
== END 2020-01-11 15:41 | disposition home or self-care (01) ==
LOC: M ED 09:53
DX: K80.70 Calculus of gallbladder and bile duct without cholecystitis without obstruction (principal)
CPT/HCPCS: 74176; 76700; 80048; 80076; 81001; 83690; 85025; 87486; 87581; 87633; 87798; 96361; 96374; 96375; 99284; J2270; J2405

== ENCOUNTER → 2020-02-01 | Outpatient (CLI) | payer BC | LOC: M LABSMTC 13:08 | PROVIDERS: ATTEND Anesthesiology | DX: Z01.818 Encounter for other preprocedural examination (principal); Z11.59 Encounter for screening for other viral diseases | CPT/HCPCS: C9803; U0003 ==

== ENCOUNTER → 2020-02-01 | Outpatient (CLI) | payer BC ==
--- NOTE | 2020-02-01 07:50 | ECGEPIP ---
[facility] Test Date: 2020-02-01 Pat Name: ALDO CARPENTER Department: Room: - Gender: Male Department Operations Manager: JEFF : 1965 Requested By: SYDNEY Voss Order Number: [id number] Reading MD: Esther Driscoll Measurements Intervals [place] Rate: 77 P: 31 WA: 145 QRS: 35 QRSD: 87 T: 47 QT: 371 QTc: 421 Interpretive Statements SINUS RHYTHM WITH SINUS ARRHYTHMIA iNF QS of possible clinical significance no prior BORDERLINE LIMB VOLT Electronically Signed on 02-01-2020 7:49:38 EDT by Esther Driscoll
== END ==
LOC: M EKG 06:29
PROVIDERS: ATTEND Anesthesiology
DX: Z01.818 Encounter for other preprocedural examination (principal)

== ENCOUNTER 2020-02-05 12:22 | Day surgery (SDC) | payer BC ==
[~2020-02-05] VITALS: Ht 167.6 cm; Wt 82.5 kg
[~2020-02-05 12:22] MED LIST: BUPIVACAINE HCL 0.25% 30ML VIAL As Ordered ONE; KETOROLAC 60MG 2ML VIAL As Ordered ONE; LIDOCAINE 1% MDV 20ML VIAL SQ PRN; LR 1,000 ML IV ONE; SUGAMMADEX SODIUM 500 MG/5 ML VIAL (BRIDION) As Ordered ONE
[2020-02-05] MEDS ORDERED: propofoL 200 MG/20 ML VIAL As Ordered ONE (12:26)
[2020-02-05] MEDS ORDERED: ROCURONIUM BROMIDE 50 MG/5 ML VIAL As Ordered ONE ×2 (12:26→19:48)
[2020-02-05] MEDS ORDERED: fentaNYL 100 MCG/2 ML INJECTION (J3010) As Ordered ONE ×3 (12:26→20:16)
[2020-02-05] MEDS ORDERED: LIDOCAINE 2% 100MG/5ML SDV (FOR ANES.) As Ordered ONE (12:26)
[2020-02-05] MEDS ORDERED: MIDAZOLAM INJ 2MG/2ML VIAL (J2250 PER 1MG) As Ordered ONE (12:27)
[2020-02-05] MEDS ORDERED: ONDANSETRON 4MG/2ML VIAL As Ordered ONE (12:27)
[2020-02-05] MEDS ORDERED: dexameTHASONE 4 MG/ML 1ML VIAL (J1100 PER 1MG) As Ordered ONE (12:27)
[2020-02-05] MEDS ORDERED: ACETAMINOPHEN 1000MG 100ML IV BTL (OFIRMEV) (J0131 PER 10MG) As Ordered ONE (19:36)
[2020-02-05] MEDS ORDERED: KETOROLAC 30 MG/ML 1ML VIAL IV PRN (20:57)
[2020-02-05] MEDS ORDERED: fentaNYL 100 MCG/2 ML INJECTION (J3010) IV PRN (21:45)
[2020-02-05] MEDS ORDERED: METOCLOPRAMIDE INJ 10MG/2ML VIAL (J2765 PER 1) IV PRN (21:45)
[2020-02-05] MEDS ORDERED: oxyCODONE 5MG TAB PO PRN (21:45)
[2020-02-05] MEDS ORDERED: ONDANSETRON 4MG/2ML VIAL IV PRN (21:45)
[2020-02-05] MEDS ORDERED: LR 1,000 ML IV SCH (21:45)
[2020-02-05] MEDS ORDERED: ACETAMINOPHEN TAB 650MG DOSE (2X325MG) PO PRN (22:00)
[2020-02-05] MEDS ORDERED: NORCO, ANEXSIA 5/325MG TABLET (HYDROcodone/ACETAMINOPHEN) PO PRN (22:00)
[2020-02-05 23:10] VITALS: BP 128/80
[2020-02-06] MEDS ORDERED: IBUPROFEN 600MG TAB PO PRN (02:00)
--- NOTE | 2020-02-12 16:54 | RO ---
DATE OF PROCEDURE: 02/05/2020 PREOPERATIVE DIAGNOSIS: Symptomatic cholelithiasis. POSTOPERATIVE DIAGNOSIS: Cholelithiasis with acute and chronic cholecystitis. PROCEDURE PERFORMED: Laparoscopic cholecystectomy. SURGEON: Dr. Turcios HYSTER MACHINE OPERATOR: ANESTHESIA: General. INDICATIONS FOR THE PROCEDURE: Patient is a 54-year-old man who had been seen in the emergency department with epigastric pain in mid to late December. He was found to have multiple gallstones. He is now for a laparoscopic cholecystectomy. OPERATIVE PROCEDURE: The patient was brought to the operating room and placed on the table in a supine position. He was placed under general endotracheal anesthesia. The patient's abdomen was prepped and draped in a sterile fashion. 0.25% Marcaine was infiltrated at the trocar sites as needed. A short supraumbilical midline incision was made. This was deepened to the fascia and a Veress needle was inserted. After a positive hanging drop test the abdomen was insufflated with carbon dioxide gas. The fascia was scored at the midline and a #11 mm trocar was placed without difficulty. The laparoscope was inserted. Initial examination showed a normal appearing liver. There was abundant omental fat covering the inferior edge of the liver in the right upper quadrant. The anterior surface of the stomach was seen and appeared normal. A 5 mm trocar was placed in the left upper quadrant. A grasper was inserted and the omentum was pulled down off of the liver. There were marked adhesions of the omentum to the underlying gallbladder, which appeared to be tensely distended and inflamed. Two additional trocars were placed in the right upper quadrant. The patient was rolled slightly to the left and tilted to a reverse Trendelenburg position. The omentum was placed under tension and using primarily the hook cautery multiple adhesions of the omentum to the gallbladder were lysed. The gallbladder was found to be tensely distended and appeared to have significant acute and chronic inflammation. It was impossible to grasp the gallbladder because it was so firm. I aspirated the gallbladder with an aspirating needle with return of a minimal amount of dark bile and identified that the gallbladder was clearly filled with stones. It was possible to gain a purchase on the body of the gallbladder using a grasping clamp and this was elevated. Additional adhesions of the omentum to the body and neck of the gallbladder were then lysed. The landmarks were obscured by marked edema and inflammation and scarring around the gallbladder neck. The peritoneum was scored and careful dissection through the pericholecystic tissues was undertaken. Care was taken to remain close to the gallbladder wall. A small arterial branch going to the gallbladder was identified and this was doubly clipped and divided. The cystic duct was identified. The swelling made the cystic duct appear enlarged but as tissues were dissected away the duct was amendable to placement of a clip. A single clip was placed on the distal end of the cystic duct and this was divided. Dissection continued working from the cystic duct stump toward the neck and body of the gallbladder. An additional vessel was identified and this was clipped and divided. Dissection continued using a combination of the hook cautery and the spatula to work through the markedly thickened, scarred tissues adjacent to the gallbladder wall. On the lateral aspect of the gallbladder another small arterial bleeder was identified and this was clipped and subsequently thoroughly cauterized. Dissection proceeded up through a thick layer of scar in the gallbladder bed freeing the gallbladder. The gallbladder was not perforated in the course of dissection. This was placed in an Endopouch. The right upper quadrant was then thoroughly irrigated. The estimated blood loss was approximately 150 mL. Once the subhepatic space and right upper quadrant had been thoroughly cleared of any spilled blood, inspection showed no evidence of bleeding or bile leak. The patient was returned to a flat position. The instruments were removed. The abdomen was deflated and the trocars were removed. The gallbladder was recovered through the supraumbilical site. It was necessary to extend the incision to approximately 2-3 cm to allow passage of the gallbladder. This was clearly filled with moderately large stones. This was sent for permanent pathology. The fascia was clearly exposed and then closed with interrupted simple sutures of #2-0 Vicryl. The skin incisions were all closed with buried #4-0 Vicryl and Steri-Strips. Light dressings were applied. The patient tolerated the procedure well without apparent complication. He was awakened in the operating room, extubated and moved to the recovery room in stable condition.
== END 2020-02-05 23:19 | disposition home or self-care (01) ==
LOC: M SDC 12:22
PROVIDERS: ATTEND Surgery
DX: K80.10 Calculus of gallbladder with chronic cholecystitis without obstruction (principal)
CPT/HCPCS: 47562; 88304; J0131; J1100; J1885; J2250; J2405; J3010

== ENCOUNTER → 2023-06-29 | Outpatient (REF) | LOC: M EMP 08:40 | PROVIDERS: ATTEND Family Medicine | DX: Z11.52 Encounter for screening for COVID-19 (principal) ==

== ENCOUNTER → 2023-10-25 | Outpatient (REF) | LOC: M EMP 09:54 | PROVIDERS: ATTEND Family Medicine | DX: Z11.52 Encounter for screening for COVID-19 (principal) ==